=== PATIENT | male | born 1930 ===

== ENCOUNTER 2018-06-14 11:45 | Emergency (ER) | payer MEDICARE ==
[2018-06-14 11:53] VITALS: BMI 26.7
[2018-06-14 12:23] VITALS: RESP 18; TEMP 98.2
--- NOTE | 2018-06-14 13:59 | RAD ---
Date of service: 06/14/2018 HISTORY: lightheaded COMPARISON: 08/03/2016 FINDINGS: LUNGS: No active pulmonary disease. PLEURA: No significant pleural effusion identified, no pneumothorax apparent. CARDIOVASCULAR: Mild cardiomegaly. Pacemaker present OSSEOUS STRUCTURES: No significant abnormalities. VISUALIZED UPPER ABDOMEN: Normal. OTHER FINDINGS: None. IMPRESSION: No active disease.
[2018-06-14 14:00] LABS: BASO # 0.01 K/mm3 (0.0-2.0); BASO % 0.2 % (0.0-3.0); EOS % 0.7 % (1.5-5.0); GRAN # 4.03 (1.4-6.5); GRAN % 69.6 % (50.0-68.0); HEMOGLOBIN 13.8 g/dL (14.0-18.0); LYMPH # 1.1 (1.2-3.4); LYMPH % 19.6 % (22.0-35.0); MEAN CELL VOLUME 88.3 fl (80.0-105.0); MEAN CORPUSCULAR HEMOGLOBIN 29.9 pg (25.0-35.0); MEAN CORPUSCULAR HGB CONC 33.8 g/dl (31.0-37.0); MEAN PLATELET VOLUME 11.8 fl (7.0-11.0); MONO # 0.6 (0.1-0.6); MONO % 9.9 % (1.0-6.0); RBC 4.62 10^6/uL (3.5-6.1); RED CELL DISTRIBUTION WIDTH 13.5 % (11.5-14.5); WHITE BLOOD COUNT 5.8 10^3/ul (4.5-11.0)
--- NOTE | 2018-06-14 14:11 | ED PDOC ---
Arrival/HPI - General Chief Complaint: Dizziness/Lightheaded Time Seen by Provider: 06/14/18 12:56 - History of Present Illness Narrative History of Present Illness (Text): 06/14/18 14:03 Pt is a 88 yo M with pmhx of HTN, CAD, CO, CHF, BPH, GERD, Asthma who presents to the ED with night sweats and lightheadedness He states that this AM he woke up and noticed that he was having covered in sweat and when he stood up noted that he was lightheaded. He then took his satolol and 2 ASA, but denies having any associated chest pain. He also admits to having a runny nose and congestion. He denies body aches or recent sick contacts and states that he got his flu shot on Monday with his pmd. He denies any syncope, or falls. He does admit to SOB w/exertion, denies chest pain, cough, abd pain, n/v, c/d. He does admit to dysuria, but denies hematuria. Pmhx: HTN, CAD, CO, CHF, BPH, GERD, Asthma All: NKDA Soc: Denies any tobacco use, etoh use or illicit drug use Fam Hx: Denies Past Medical History - Provider Review Nursing Documentation Reviewed: Yes - Cardiac Hx Pacemaker: Yes - Hematological/Oncological Hx Blood Transfusions: Yes (DOES NOT REMEMBER WHEN) Hx Blood Transfusion Reaction: No - Musculoskeletal/Rheumatological Hx Musculoskeletal Disorders: No - Psychiatric Hx Emotional Abuse: No Hx Physical Abuse: No Hx Substance Use: No - Anesthesia Hx Anesthesia: Yes Hx Anesthesia Reactions: No Hx Malignant Hyperthermia: No - Suicidal Assessment Feels Threatened In Home Enviroment: No Family/Social History - Physician Review Nursing Documentation Reviewed: Yes Family/Social History: No Known Family HX Smoking Status: Never Smoked Hx Alcohol Use: Yes (RARE-WINE) Hx Substance Use: No Allergies/Home Meds Allergies/Adverse Reactions: Allergies No Known Allergies Allergy (Verified 02/25/15 12:43) Home Medications: Home Meds Medication Instructions Recorded Confirmed Aspirin [Aspirin Low Dose] 81 mg PO DAILY 02/25/15 03/16/15 Finasteride [Proscar] 5 mg PO DAILY 02/25/15 03/16/15 Losartan [Cozaar] 50 mg PO DAILY 02/25/15 03/16/15 Pantoprazole Sodium [Protonix] 40 mg PO DAILY 02/25/15 03/16/15 Ropinirole HCl [Requip] 0.5 mg PO DAILY 02/25/15 03/16/15 Sotalol [Sorine] 80 mg PO BID 02/25/15 03/16/15 Tamsulosin [Flomax] 0.4 mg PO DAILY 02/25/15 03/16/15 Furosemide [Lasix] 40 mg PO DAILY 06/14/18 06/14/18 Review of Systems - Physician Review All systems were reviewed & negative as marked: Yes - Review of Systems Constitutional: Fevers, Night Sweats Respiratory: SOB (with exertion). absent: Cough, Sputum Cardiovascular: absent: Chest Pain, Palpitations, Calf Pain Gastrointestinal: absent: Abdominal Pain, Constipation, Diarrhea, Nausea, Vomiting Genitourinary Male: Dysuria. absent: Hematuria Physical Exam Vital Signs Reviewed: Yes Vital Signs Temp Pulse Resp BP Pulse Ox 06/14/18 13:30 58 L 18 116/62 98 06/14/18 12:23 98.2 F 51 L 18 113/64 98 Temperature: Afebrile Blood Pressure: Normal Pulse: Bradycardic Respiratory Rate: Normal Appearance: Positive for: Well-Appearing, Non-Toxic, Comfortable Pain Distress: None Mental Status: Positive for: Alert and Oriented X 3 - Systems Exam Head: Present: Atraumatic, Normocephalic Pupils: Present: PERRL Extroacular Muscles: Present: EOMI Respiratory/Chest: Present: Clear to Auscultation, Good Air Exchange. No: Respiratory Distress, Accessory Muscle Use, Wheezes, Rales, Rhonchi Cardiovascular: Present: Regular Rate and Rhythm, Normal S1, S2. No: Murmurs, Rub, Gallop Abdomen: Present: Tenderness (supra-pubic tenderness), Normal Bowel Sounds. No: Distention, Peritoneal Signs, Rebound, Guarding Lower Extremity: Present: Normal Inspection, Neurovascularly Intact, Capillary Refill < 2 s. No: Edema, CALF TENDERNESS, Mayra's Sign, Tenderness, Erythema, Deformity Neurological: Present: GCS=15, Speech Normal, Motor Func Grossly Intact, Normal Sensory Function Skin: Present: Warm, Dry, Normal Color. No: Rashes Psychiatric: Present: Alert, Oriented x 3, Normal Insight, Normal Concentration Medical Decision Making ED Course and Treatment: 06/14/18 14:16 Pt is an 88 yo M with pmhx detailed above who presents for night sweats and dizziness. - CBC - CMP - Trops - CXR - Orthostatics - UA - EKG 06/14/18 18:38 Progress Note: Pt is re-examined at bedside. He states that he is feeling better. CBC showes no WBC elevation, CXR per radiologist report: No active disease. Called Dr. Monae. Dr. Bojorquez returned the call and discussed the case. She stated that if Urinalysis comes back clean, then we can d/c pt with follow up to Dr. Monae clinic tomorrow. 06/14/18 18:55 Progress Note: Pt re-examined at bedside. Pt states that he is asymptomatic at this time and is feeling much better. UA results returned and showed no sign of infection. Informed pt of the conversation with Dr. Bojorquez and told pt to follow up with Dr. Monae tomorrow in his office. - RAD Interpretation Radiology Orders: 06/14/18 13:28 CHEST PORTABLE [RAD] Stat - EKG Interpretation EKG Interpretation (Text): 06/14/18 15:35 Sinus dori @ 55 with 1st degree AV block w/ occasional PVCs Possible L atrial enlargement Low voltage QRS Anterolateral infarct, age undetermined T wave abnormality Prolonged QT Interpreted by ED Physician: Yes Type: 12 lead EKG Disposition/Present on Arrival - Present on Arrival Any Indicators Present on Arrival: No History of DVT/PE: No History of Uncontrolled Diabetes: No Urinary Catheter: No History of Decub. Ulcer: No History Surgical Site Infection Following: None - Disposition Have Diagnosis and Disposition been Completed?: Yes Diagnosis: Lightheaded, URI (upper respiratory infection) Disposition: HOME/ ROUTINE Disposition Time: 18:57 Patient Plan: Discharge Condition: STABLE Discharge Instructions (ExitCare): Viral Upper Respiratory Infection, Adult (DC) Forms: [employer] (Malaysian)
[2018-06-14 14:14] LABS: ALB/GLOB RATIO 1.4 (1.1-1.8); ALBUMIN 4.4 g/dL (3.0-4.8); ALT/SGPT 29 U/L (7-56); AST/SGOT 21 U/L (17-59); BLOOD UREA NITROGEN 28 mg/dL (7-21); CALCIUM 9.5 mg/dL (8.4-10.5); GFR NON-AFRICAN AMERICAN 41
[2018-06-14 14:23] LABS: TROPONIN I < 0.01 ng/mL
--- NOTE | 2018-06-14 14:58 | CARD ---
APPROVED REPORT Date of service: 06/14/2018 EKG Measurement Heart [id number] <Conclusion> Sinus bradycardia with 1st degree AV block with occasional premature ventricular complexes Possible Left atrial enlargement Low voltage QRS Anterolateral infarct, age undetermined T wave abnormality, consider inferior ischemia Prolonged QT Abnormal ECG
[2018-06-14 15:20] VITALS: O2SAT 99
[2018-06-14 18:36] LABS: URINE BILIRUBIN NEGATIVE (NEGATIVE); URINE BLOOD NEGATIVE (NEGATIVE); URINE GLUCOSE (UA) NEGATIVE (NEGATIVE); URINE LEUKOCYTE ESTERASE NEGATIVE Leu/uL (NEGATIVE); URINE PROTEIN NEGATIVE mg/dL (<30 mg/dL); URINE UROBILINOGEN 0.2 E.U./dL (<1 E.U./dL)
[2018-06-14 18:38] LABS: URINE APPEARANCE CLEAR (CLEAR); URINE COLOR YELLOW (YELLOW)
[2018-06-14 19:09] VITALS: BP 148/61; PULSE 65
== END 2018-06-14 19:15 | disposition home or self-care (01) ==
LOC: ED 11:45
DX: J06.9 Acute upper respiratory infection, unspecified (principal); R42 Dizziness and giddiness; I25.10 Atherosclerotic heart disease of native coronary artery without angina pectoris; I25.2 Old myocardial infarction; I11.0 Hypertensive heart disease with heart failure; I50.9 Heart failure, unspecified; Z95.0 Presence of cardiac pacemaker

== ENCOUNTER 2018-11-02 12:49 | Outpatient (CLI) | payer MEDICARE | END 2018-11-02 12:50 | disposition home or self-care (01) | LOC: RAD 12:49 ==